=== PATIENT | female | born 1955 | race Caucasian/White ===

== ENCOUNTER 2019-04-14 07:44 | Outpatient (CLI) | payer OTHER | END 2019-04-14 23:59 | disposition home or self-care (01) | LOC: CFH 07:44 | PROVIDERS: ATTEND Family Medicine | DX: Z12.31 Encounter for screening mammogram for malignant neoplasm of breast (principal); N64.89 Other specified disorders of breast; Z13.820 Encounter for screening for osteoporosis; M81.8 Other osteoporosis without current pathological fracture | CPT/HCPCS: 77063; 77067; 77080 ==

== ENCOUNTER 2020-04-07 10:59 | Emergency (ER) | payer OTHER ==
[~2020-04-07] VITALS: Ht 157.5 cm; Wt 68.0 kg
--- NOTE | 2020-04-07 11:14 | NUR ---
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
--- NOTE | 2020-04-07 11:15 | NUR ---
sternal/left sided CP and sob intermittent for several weeks, worse today denies viral sx No cardiac hx other than htn (noncompliant with meds) Ecg obtained in triage VSS Reports extreme increase in social stressors lately
--- NOTE | 2020-04-07 11:55 | NUR ---
lab/radiology at bedside
[2020-04-07 12:14] LABS: BASOPHILS % (AUTO) 1 % (0-1); EOSINOPHILS % (AUTO) 1 % (1-7); LYMPHOCYTES % (AUTO) 35 % (22-44); MEAN CORPUSCULAR HEMOGLOBIN 34.9 pg (27.0-34.8); MEAN CORPUSCULAR HGB CONC 34.3 g/dL (32.4-35.8); MEAN PLATELET VOLUME 7.8 fL (7.4-10.4); MONOCYTES % (AUTO) 8 % (2-9); NEUTROPHILS % (AUTO) 55 % (42-75); PLATELET COUNT 235 x10^3/uL (130-400); RED BLOOD COUNT 4.16 x10^6/uL (3.82-5.3); RED CELL DISTRIBUTION WIDTH 12.5 % (9.6-15.2)
[2020-04-07 12:16] LABS: MD NO
[2020-04-07 12:22] LABS: ALANINE AMINOTRANSFERASE 29 U/L (12-78); ALBUMIN 3.8 g/dL (3.4-5.0); ANION GAP 6 mmol/L (5-15); CALCIUM 9.4 mg/dL (8.5-10.1); CHLORIDE 110 mmol/L (98-107)
[2020-04-07 12:26] LABS: ALKALINE PHOSPHATASE 104 U/L (45-117); BILIRUBIN,TOTAL 0.8 mg/dL (0.2-1.0); TOTAL PROTEIN 7.2 g/dL (6.4-8.2); TROPONIN I < 0.015 ng/mL (0.000-0.045)
[2020-04-07 12:50] VITALS: BP 158/77
== END 2020-04-07 13:28 | disposition home or self-care (01) ==
LOC: ED 12:50
DX: F41.1 Generalized anxiety disorder (principal); I10 Essential (primary) hypertension; R07.89 Other chest pain; R00.2 Palpitations; R06.00 Dyspnea, unspecified
CPT/HCPCS: 36415; 71046; 80053; 84484; 85025; 93005; 99285